=== PATIENT | female | born 2000 | race Two or more races ===

== ENCOUNTER 2019-10-16 11:56 | Emergency (ER) | payer OTHER ==
[~2019-10-16] VITALS: Ht 165.1 cm; Wt 59.9 kg
[2019-10-16] MEDS ORDERED: ORTHO TRI-CYCL1 EACH (12:05)
== END 2019-10-16 19:29 | disposition home or self-care (01) ==
LOC: ER 11:56
DX: R10.2 Pelvic and perineal pain (principal)

== ENCOUNTER → 2020-06-27 15:05 | Outpatient (CLI) | payer OTHER ==
[~2020-06-27 15:05] MED LIST: ORTHO TRI-CYCL1 EACH
== END | disposition home or self-care (01) ==
LOC: LAB 15:05
DX: Z20.828 Contact with and (suspected) exposure to other viral communicable diseases (principal); R50.9 Fever, unspecified; R05 Cough; R06.02 Shortness of breath; Z03.818 Encounter for observation for suspected exposure to other biological agents ruled out